=== PATIENT | female | born 1985 | race Caucasian/White ===

== ENCOUNTER 2018-08-26 07:48 | Inpatient (IN) ==
--- NOTE | 2018-08-26 08:41 | OB/GYN History & Physical ---
Date of Encounter: 08/26/18 Time of Encounter: 08:41 Assessment and Plan (1) 40 weeks gestation of Current visit: Yes Status: Acute (2) Intrauterine Current visit: Yes Status: Acute (3) Intact amniotic membranes during in third trimester Current visit: Yes Status: Acute (4) Type A blood, Rh positive Current visit: Yes Status: Acute (5) Active labor at term Current visit: Yes Status: Acute Admit to L&D for observation of labor Expectant management Labs-CBC and clot to hold Intermittent auscultation Pain management plan is natural childbirth Anticipate Dr. Dunn is OB on-call and is available as needed. He is in agreement with plan of care. (6) NST (non-stress test) reactive Current visit: Yes Status: Acute History of Present Illness Chief complaint: contractions HPI: Ms. López is a 32 year old female and 40 weeks 4 days gestation with an estimated date of of 08/26/18 dated by LMP. She presents with complaint of contractions starting 1900 last night. She endorses good movement and denies leakage of fluid and vaginal bleeding. Her has been uncomplicated. She has been followed by the midwives throughout her . records are available electronically and have been reviewed. Labs: A+ GBS- Hep B- HIV declined T. Palladium declined Rubella declined GC/CL declined Varicella immune Past Med Surg Social Fam HX - Past Medical History Medical history: no medical history Psychiatric history: no psych history - Past Surgical History Surgical History: no surgical history - Social History Smoking Status: Never smoker Alcohol use: none Drug use: none - Family History Mother Age: 56 Family Member Ethnicity: Non- Living Status: Still Living Hx Family Cardiac Disorders: No Hx Family Respiratory Disorders: No Hx Family Cancer: No Hx Family GI Disorders: No Hx Family Genitourinary Disorders: No Hx Family Endocrine Disorder: No Hx Family Musculoskeletal Disorders: No Hx Family Neuromuscular Disorders: No Hx Family Neurologic Disorders: No Hx Family HEENT Disorders: No Hx Family Autoimmune Disorders: No Hx Family Reproductive Disorders: No Hx Family Psychosocial Disorders: No Hx Family Medical Disorders: No Obstetrical History - Pregnancies : 6 Para: 5 Term: 5 ( # 1: 05-11-2011-- vag del at home , female 6 lbs 9 0z----post hemorrhage-- stopped with natural supplements; # 2: 07-25-2012-- vag del at home, male 8 lbs 8 oz--- no complications; # 3 03-02-2014-- vag del at home, female 5 lbs 15 oz-- no complications; # 4: 10-27-2015 vag del full terma at home, female 7 lbs 14 oz--no complications; #5 - 04/06/17) : 0 Ab's: 0 Livin Review of System OB All systems PM: reviewed and no additional remarkable complaints except as stated Exam - Constitutional Constitutional: well developed, well nourished, no acute distress, average body habitus, mild distress - HEENT HEENT: Normocephaly, Mucus Membranes Moist - Neck Neck exam: full ROM - Lungs Respiratory exam: CTAB - Cardiovascular Cardiovascular exam: RRR, +S1, +S2 - Breasts Breast: bilateral: normal - Abdomen Abdomen: Present: bowel sounds normal, gravid, non tender - Extremities Extremities exam: normal capillary refill, normal inspection, radial pulses palpable and symmetrical - Vulva Vulva: bilateral: normal - Vagina Vagina: Present: normal moisture - Cervix Dilation: 5 (per RN) Effacement: 90 Station: -1 - Uterus Uterus exam: Present: normal size, normal contour - Adnexa Adnexa: bilateral: normal - Anus/Rectum Anus/Rectum: Present: normal perianal skin Results All other labs normal. - VTE Reasons for not Prescribing Prophylaxis: Treatment not Indicated - Low risk for VTE
[2018-08-26] MEDS ORDERED: Ondansetron 4 MG/2 ML VIAL IVP PRN (08:58)
[2018-08-26] MEDS ORDERED: Famotidine 20 MG/2 ML VIAL IVP PRN (08:58)
[2018-08-26] MEDS ORDERED: Naloxone 0.4 MG/ML INJ IVP PRN (08:58)
[2018-08-26] MEDS ORDERED: *HR* Nalbuphine 10 MG/ML AMPUL IVP PRN (08:58)
[2018-08-26] MEDS ORDERED: Ringers Solution, Lactated 1,000 ML IVC SCH (09:00)
[2018-08-26 09:14] LABS: Basophils % 0.4 %; Eosinophils # 0.1 K/mcL (0.0-0.6); Eosinophils % 1.1 %; Hematocrit 35.7 % (35.3-44.9); Hemoglobin 12.3 g/dL (11.5-15.4); Immature Granulocytes % 0.8 % (0-4); Lymphocytes # 1.6 K/mcL (0.6-4.6); Mean Corpuscular HGB Conc 34.5 g/dL (31.6-35.5); Mean Corpuscular Hemoglobin 30.5 pg (28.0-33.3); Mean Corpuscular Volume 88.6 fL (83.0-100.0); Mean Platelet Volume 10.3 fL (9.4-12.4); Monocytes # 0.5 K/mcL (0.0-1.3); Monocytes % 7.2 %; Neutrophils # 5.2 K/mcL (1.6-8.9); Platelet Count 188 K/mcL (140-400); Red Blood Count 4.03 M/mcL (3.82-4.97); Red Cell Distribution Width 13.2 % (11.5-14.5); Segmented Neutrophils % 69.5 %
[2018-08-26 09:52] LABS: Amphetamine Screen,Urine Negative ng/mL (Cutoff=1000); Barbiturate Screen,Urine Negative ng/mL (Cutoff=200); Benzodiazepines Screen,Urine Negative ng/mL (Cutoff=200); Cannabinoid Screen,Urine Negative ng/mL (Cutoff = 50); Cocaine Screen,Urine Negative ng/mL (Cutoff= 300); Opiate Screen,Urine Negative ng/mL (Cutoff=300); Phencyclidine Screen,Urine Negative ng/mL (Cutoff=25)
--- NOTE | 2018-08-26 10:17 | OB Labor Progress Note ---
Date of Encounter: 08/26/18 Time of Encounter: 10:15 Labor Progress Note - Subjective Subjective: Patient comfortable with contractions. - Cervix Cervix: 8-9/90/0 - Heart Tones Heart Tones: IA - FHT 130, moderate variability, no audible deceleration, audible acceleration - [place] Ochelata: Contractions every 5-8 minutes - Interventions Interventions: SVE - Plan Physician notified: No Plan: Continue expectant mangement Patient will notify when she feels the need to push Anticipate
[2018-08-26] MEDS ORDERED: Oxytocin 20 units/ LR 1000 mL 40 UNIT/2,000 ML BAG IVC ONE (11:14)
--- NOTE | 2018-08-26 12:12 | OB/GYN Procedure Note ---
Delivery - Delivery Date: 08/26/18 Provider: Ana Hernandez Intrapartum events: none Delivery induction: none Delivery monitor: external FHT (IA), external uterine (IA) Anesthesia: none Quantitated Blood Loss: 25 - Infant (s) A Infant Delivery Date: 08/26/18 Infant Delivery Time: 11:31 Presentation: vertex Position: NUHA Route of delivery: Gender: Female Viability: Viable Pounds: 7 Ounces: 11 Weight Gram: 3.465 kg at 1 minute: 8 at 5 mins: 9 Shoulder Dystocia: not encountered Specimens collected: cord blood Placenta: spontaneous Cord: nuchal cord, true knot, 3 umbilical vessels, delivered through nuchal - Repair Episiotomy: none Laceration Description: None - Complications Delivery complications: none Delivery comments: This is a 32 year old G6 now [id number] who was admitted for active labor. She progressed spontaneously to the second stage of labor. She pushed for about 20 minutes. She delivered a viable, female , NUHA over an intact perineum. A nuchal cord was identified. The infant was delivered through the cord. A true knot was identified post delivery. A shoulder dystocia was not encountered. The infant was placed on the maternal abdomen and allowed to transition spontaneously. The cord was double clamped by bag bailer after pulsations ceased and cut by bag bailer. scores were 8 at 1 minute and 9 at 5 minutes. The infant weighed 7lbs 11oz (3465g). The placented delivered spontaneously with a 3-vessel cord. Inspection revealed an intact perineum. The uterus was firm with no active bleeding. EBL was 25mL. Placenta and umbilical artery blood gases were not sent. There were no complications during the procedure. Mom and baby are skin to skin following delivery. - Disposition Mom disposition: stable in LDR disposition: stable in LDR
[2018-08-26] MEDS ORDERED: Oxytocin 20 units/ LR 1000 mL 20 UNIT/1,000 ML BAG IVC SCH (14:46)
[2018-08-26] MEDS ORDERED: Acetaminophen 325 MG TABLET PO PRN (14:46)
[2018-08-26] MEDS ORDERED: Ibuprofen 600 MG TABLET PO PRN (14:46)
[2018-08-26 16:37] VITALS: BP 118/75
--- NOTE | 2018-08-26 17:14 | Discharge Summary ---
Date of Encounter: 08/26/18 Time of Encounter: 17:10 - Discharge Diagnosis (1) Vaginal delivery Priority: Primary Status: Acute Comments: Feeling well Tolerating regular diet Pain well-controlled with by mouth pain meds Ambulating independently Voiding independently Lochia light Passing flatus, no BM yet Vital signs stable Discharge home today (2) Breast feeding status of mother Priority: Secondary Status: Acute Comments: Experienced mother - resources within community. - Discharge Medications Home Medications: Acetaminophen [Tylenol] 650 mg PO Q6HR PRN tablet 08/26/18 [Rx] Docusate [Colace] 100 mg PO BID capsule 08/26/18 [Rx] Ferrous Sulfate 325 mg PO DAILY tablet 08/26/18 [Rx] Ibuprofen [Motrin] 600 mg PO Q6HR PRN tablet 08/26/18 [Rx] Vitamin Tablet 1 mg PO DAILY 08/26/18 [History] Allergies/Adverse Reactions: Allergy/AdvReac Type Severity Reaction Status Date / Time No Known Allergies Allergy Verified 08/26/18 08:51 Data Procedures and tests throughout hospitalization: Laboratory Tests 08/26/18 08/26/18 08:13 08:40 WBC 7.5 RBC 4.03 Hgb 12.3 Hct 35.7 MCV 88.6 MCH 30.5 MCHC 34.5 RDW 13.2 Plt Count 188 MPV 10.3 Immature Gran % 0.8 Seg Neutrophils % 69.5 Lymphocytes % 21.0 Monocytes % 7.2 Eosinophils % 1.1 Basophils % 0.4 Neutrophils # 5.2 Lymphocytes # 1.6 Monocytes # 0.5 Eosinophils # 0.1 Basophils # 0.0 Urine Opiates Screen Negative Ur Barbiturates Screen Negative Ur Phencyclidine Scrn Negative Ur Amphetamines Screen Negative U Benzodiazepines Scrn Negative Urine Cocaine Screen Negative U Marijuana (THC) Screen Negative Ur Drug Screen Interp See Below Labs on day of discharge: Labs from last 24 hours 08/26/18 08/26/18 08:40 08:13 WBC 7.5 RBC 4.03 Hgb 12.3 Hct 35.7 MCV 88.6 MCH 30.5 MCHC 34.5 RDW 13.2 Plt Count 188 MPV 10.3 Immature Gran % 0.8 Seg Neutrophils % 69.5 Lymphocytes % 21.0 Monocytes % 7.2 Eosinophils % 1.1 Basophils % 0.4 Neutrophils # 5.2 Lymphocytes # 1.6 Monocytes # 0.5 Eosinophils # 0.1 Basophils # 0.0 Urine Opiates Screen Negative Ur Barbiturates Screen Negative Ur Phencyclidine Scrn Negative Ur Amphetamines Screen Negative U Benzodiazepines Scrn Negative Urine Cocaine Screen Negative U Marijuana (THC) Screen Negative Ur Drug Screen Interp See Below Date of admission: 08/26/18 07:48 Primary care physician: PCP CEASAR Consults: 08/26/18 14:46 Consult to Trench Shovel Operator [CONS] Routine Comment: Vaginal delivery, consult needed Discharging clinician: Ana Hernandez Anticipated date of discharge: 08/26/18 - Patient Status Disposition: Home, Self-Care Condition: Good Functional capacity at discharge: independent ambulation Overall status at discharge: patient is progressing back to baseline - Discharge Instructions Follow Up With: NONE,PCP [Primary Care Provider] - Ana Hernandez [Advanced Practice Nurse] - - Diet and Activity Activity: increase activity as tolerated Diet: regular diet Hospital Course Procedures: Reason for admission: active labor, IUP at term Delivery: Episiotomy: none Laceration: none Other procedures: none complications: none Discharge diagnosis: IUP at term delivered [place] baby: female Hospital course: Patient presented to labor and delivery in active labor at 5-6 cm. She progressed spontaneously and delivered a viable female . Her course has been uncomplicated and patient is requesting to go home at 6 hours . The infant has been assessed and discharged by Dr. Donahue. Patient will be discharged home in stable and condition with follow-up in 4 weeks. Time Attestation: Total time spent providing and/or coordinating discharge services: Time Spent: Less than 30 minutes Exam - Constitutional Vitals: Temp Pulse Resp BP Pulse Ox 98.1 F 83 16 118/75 99 08/26/18 15:30 08/26/18 15:30 08/26/18 15:30 08/26/18 15:30 08/26/18 15:30 General appearance IM: A&O X 3 - Respiratory Respiratory exam: Present: CTAB - Cardiovascular Cardiovascular exam IM: Present: RRR, +S1, +S2 - GI/Abdominal GI/Abdominal exam IM: normal bowel sounds, no peritoneal signs - Rectal Rectal exam: deferred - Uterine Tone: Firm Uterus Position: At Umbilicus, Midline - Extremities Exam Extremities exam IM: Present: normal capillary refill, normal inspection, radial pulses palpable and symmetrical - Neurological Exam Neurological exam: alert, CN II-XII intact, normal gait, oriented X3, reflexes normal, no focal deficits, strengths equal and symetr throughout - Psychiatric Additional comments: Signs and symptoms of depression discussed with patient and partner both verbalized understanding of when to seek help. - Skin Additional comments: Breasts: soft, nontender; nipples intact without erythema
[2018-08-27] MEDS ORDERED: Prenatal Vit/FA 1 EACH TABLET PO SCH (09:00)
== END 2018-08-26 18:21 | disposition home or self-care (01) | DRG 807 ==
LOC: 1NENULAB → OBSVTOIN 07:48 → 1NENUOBS 14:33
PROVIDERS: ADMIT Advanced Practice Midwife; ATTEND Advanced Practice Midwife

== ENCOUNTER 2020-03-12 23:18 | Inpatient (IN) ==
[~2020-03-12 23:18] MED LIST: *HR* FentaNYL (PF) 100 MCG/2 ML VIAL IVP PRN; Famotidine 20 MG/2 ML VIAL IVP PRN; Metoclopramide 10 MG/2 ML VIAL IVP PRN; Naloxone 0.4 MG/ML INJ IVP PRN; Ondansetron 4 MG/2 ML VIAL IVP PRN; Ringers Solution, Lactated 1,000 ML IVC SCH
[2020-03-12 23:44] LABS: Basophils % 0.1 %; Eosinophils # 0.1 K/mcL (0.0-0.6); Eosinophils % 1.2 %; Hematocrit 34.3 % (35.3-44.9); Hemoglobin 11.4 g/dL (11.5-15.4); Immature Granulocytes % 0.7 % (0-4); Lymphocytes % 23.4 %; Mean Corpuscular HGB Conc 33.2 g/dL (31.6-35.5); Mean Corpuscular Hemoglobin 29.9 pg (28.0-33.3); Mean Platelet Volume 10.1 fL (9.4-12.4); Monocytes # 0.5 K/mcL (0.0-1.3); Monocytes % 6.3 %; Neutrophils # 5.7 K/mcL (1.6-8.9); Platelet Count 165 K/mcL (140-400); Red Blood Count 3.81 M/mcL (3.82-4.97); Red Cell Distribution Width 13.5 % (11.5-14.5); Segmented Neutrophils % 68.3 %; White Blood Count 8.4 K/mcL (4.3-11.1)
[2020-03-12 23:53] LABS: Amphetamine Screen,Urine Negative ng/mL (Cutoff=1000); Barbiturate Screen,Urine Negative ng/mL (Cutoff=200); Benzodiazepines Screen,Urine Negative ng/mL (Cutoff=200); Cannabinoid Screen,Urine Negative ng/mL (Cutoff = 50); Cocaine Screen,Urine Negative ng/mL (Cutoff= 300); Opiate Screen,Urine Negative ng/mL (Cutoff=300); Phencyclidine Screen,Urine Negative ng/mL (Cutoff=25)
[2020-03-13] MEDS ORDERED: Benzocaine/Menthol 56 GM AEROSOL SPRAY TP PRN (03:35)
[2020-03-13] MEDS ORDERED: Oxytocin 20 units/ LR 1000 mL 20 UNIT/1,000 ML BAG IVC SCH (03:35)
[2020-03-13] MEDS ORDERED: Ibuprofen 600 MG TABLET PO PRN (03:35)
[2020-03-13] MEDS ORDERED: Measles/Mumps/Rubella Vacc 0.5 ML VIAL SQ PRN (03:35)
[2020-03-13] MEDS ORDERED: *HR* HYDROcodone/Acet 5/325 mg TABLET PO PRN (03:35)
[2020-03-13] MEDS ORDERED: Lanolin 7 G OINT...G. TP PRN (03:35)
[2020-03-13] MEDS ORDERED: Acetaminophen 325 MG TABLET PO PRN (03:35)
[2020-03-13 08:05] VITALS: BP 106/65
[2020-03-13] MEDS ORDERED: Prenatal Vit/FA 1 EACH TABLET PO SCH (09:00)
== END 2020-03-13 12:20 | disposition home or self-care (01) | DRG 807 ==
LOC: 1NENULAB → 1NENUOBS 03-13 04:15
PROVIDERS: ADMIT Advanced Practice Midwife; ATTEND Advanced Practice Midwife